=== PATIENT | female | born 1990 | race Caucasian/White ===

== ENCOUNTER 2017-02-03 13:09 | Emergency (ER) | payer OTHER | END 2017-02-03 14:30 | disposition left against medical advice (07) | LOC: ER 13:09 | DX: Z53.21 Procedure and treatment not carried out due to patient leaving prior to being seen by health care provider (principal) ==

== ENCOUNTER 2017-03-19 09:57 | Emergency (ER) | payer OTHER ==
[2017-03-19 11:04] LABS: BASO # 0.1 10_X3_uL (0.0-0.1); BASO % 0.9 % (0.1-1.2); EOS # 0.3 10_X3_uL (0.0-0.4); EOS % 3.2 % (0.7-5.8); GRAN # 4.5 10_X3_uL (1.6-6.1); GRAN % 57.9 % (34.0-71.1); HEMATOCRIT 41.7 % (34-45); HEMOGLOBIN 14.5 g/dL (11.2-15.7); LYMPH # 2.3 10_X3_uL (1.2-3.7); LYMPH % 30.1 % (19.3-51.7); MEAN CORPUSCULAR HEMOGLOBIN 30.9 pg (27.0-33.0); MEAN CORPUSCULAR HGB CONC 34.8 g/dL (32.0-36.0); MEAN CORPUSCULAR VOLUME 88.9 fL (79-95); MEAN PLATELET VOLUME 10.5 fl (7.5-11.5); MONO # 0.6 10_X3_uL (0.2-0.9); MONO % 7.9 % (4.7-12.5); PLATELET COUNT 164 x10_3/uL (182-369); RED BLOOD COUNT 4.69 x10_6/uL (3.9-5.2); RED CELL DISTRIBUTION WIDTH 14.5 % (11.7-14.4); WHITE BLOOD COUNT 7.7 x10_3/uL (4.0-10.0)
== END 2017-03-19 11:37 | disposition home or self-care (01) ==
LOC: ER 09:57
PROVIDERS: Family Medicine
DX: J02.9 Acute pharyngitis, unspecified (principal); F17.210 Nicotine dependence, cigarettes, uncomplicated; Z79.899 Other long term (current) drug therapy; Z88.6 Allergy status to analgesic agent
CPT/HCPCS: 36415; 80307; 81025; 85025; 86308; 87070; 87880; 99282